=== PATIENT | male | born 1955 | race Caucasian/White ===

== ENCOUNTER → 2023-08-26 | Outpatient (CLI) | payer OTHER ==
--- NOTE | 2023-08-26 18:55 | MR ---
EXAMINATION TYPE: MR knee RT wo con DATE OF EXAM: 08/26/2023 COMPARISON: None HISTORY: 67-year-old male M25.561 Rt knee pain TECHNIQUE: Multiplanar, multisequence imaging of the right knee is performed without IV contrast. FINDINGS: The ACL and PCL are intact. There is edema on either side of the intact MCL. LCL complex is intact. Inner margin radial tear posterior horn of the medial meniscus. Additional oblique tear posterior hor n extending to the junction with the meniscal body. Small partial tear of the semimembranosus inserti on just adjacent. Prominent associated posterior soft tissue swelling. Focal moderate irregular carti wes loss medial weightbearing aspect of the mediofemoral condyle. There is mild diffuse thinning of medial compartment articular cartilage volume. The lateral meniscus is intact and overall lateral compartment articular volume is maintained. There is moderate irregular cartilage fissuring throughout the mid and lateral patellar articular khushbu faces. Trochlear cartilage is maintained. Extensor mechanism is intact. There appears to be adventitial bursal formation anterior to the distal patellar tendon just above th e tibial tuberosity measuring 3.9 cm By 6 mm thick by 2.4 cm craniocaudal. Additional mild anterior soft tissue swelling. There is a small knee joint effusion without Moreno's cyst. IMPRESSION: 1. Grade 1 MCL sprain. 2. Large oblique tear involving the posterior horn of the medial meniscus with superimposed inner mar gin radial tear. 3. Small partial tear of the semimembranosus insertion and adjacent soft tissue swelling. 4. 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 5. Adventitial bursal formation anterior to the distal patellar tendon just above the tibial tuberosi ty measuring 3.9 x 2.4 x 0.6 cm.
== END | disposition home or self-care (01) ==
LOC: RADMRIMAIN 10:22
PROVIDERS: ATTEND Family Medicine
DX: S83.241A Other tear of medial meniscus, current injury, right knee, initial encounter (principal); M17.11 Unilateral primary osteoarthritis, right knee; S83.411A Sprain of medial collateral ligament of right knee, initial encounter

== ENCOUNTER → 2023-10-01 | Outpatient (CLI) | payer OTHER | END | disposition home or self-care (01) | LOC: LABWHC1 11:37 | DX: Z53.9 Procedure and treatment not carried out, unspecified reason (principal) ==

== ENCOUNTER 2023-10-07 10:26 | Day surgery (SDC) | payer OTHER ==
[2023-10-04 15:17] VITALS: BMI 32.3
[2023-10-07] MEDS: IV FLUID CONTINUATION 1,000 ML IV ONE (11:07)
[2023-10-07] MEDS: LACTATED RINGERS 1,000 ML IV SCH (11:41)
[2023-10-07] MEDS: ONDANSETRON 4 MG/2 ML VIAL IVP ONE (11:43)
[2023-10-07] MEDS: DEXAMETHASONE SOD PHOSPHATE 4 MG/ML 1 ML VIAL IV ONE (11:44)
[2023-10-07] MEDS ORDERED: LIDOCAINE 1% INJ 10MG/ML (20 ML MDV) ONE (11:56)
[2023-10-07] MEDS ORDERED: GLYCOPYRROLATE 0.2 MG/ML 2 ML VIAL ONE (11:56)
[2023-10-07] MEDS ORDERED: SUCCINYLCHOLINE CHLORIDE 200 MG/10 ML VIAL IV ONE (11:56)
[2023-10-07] MEDS ORDERED: MIDAZOLAM 2 MG/2 ML VIAL ONE (11:56)
[2023-10-07] MEDS ORDERED: PROPOFOL 10 MG/ML 20 ML VIAL IV ONE (11:56)
[2023-10-07] MEDS ORDERED: fentaNYL (PF) 50 MCG/ML 2 ML AMP ONE (11:56)
[2023-10-07] MEDS: BUPIVACAINE (PF) 0.25% 30 ML VIAL SQ ONE (12:21)
--- NOTE | 2023-10-07 12:48 | P.OP ---
Date of Procedure: 10/07/23 Preoperative Diagnosis: Internal derangement right knee Postoperative Diagnosis: 1. Tear medial and lateral meniscus right knee 2. Grade IV chondromalacia medial femoral condyle right knee 3. Reactive synovitis medial, lateral and suprapatellar compartments right knee Procedure(s) Performed: 1. Arthroscopic partial medial and lateral meniscectomy right knee 2. Arthroscopic microfracture medial femoral condyle right knee 3. Arthroscopic partial synovectomy medial, lateral and suprapatellar compartments right knee Anesthesia: JAMAALA, local Surgeon: Obi Echols Estimated Blood Loss (ml): 6 Pathology: none sent Condition: stable Disposition: PACU Indications for Procedure: 67-year-old patient seen with progressive right knee pain. After having treatment options discussed, he elected to proceed with arthroscopy. Operative Findings: See description of procedure Description of Procedure: Patient was taken to the operative suite. Patient underwent a general anesthetic by the department of anesthesia. Patient was given preoperative antibiotics. The right lower extremity was placed in a well-padded arthroscopic leg peterson. The right leg was prepped and draped in the normal sterile orthopedic fashion. A lateral parapatellar and suprapatellar incision was made. Trochars were inserted. Arthroscopy was initiated. Suprapatellar pouch revealed diffuse thick reactive synovitis. The patellofemoral joint appeared to articulate congruently. There was grade II/III chondromalacia of the patella with no tears. The scope was guided into the medial gutter. No loose bodies or plica were identified. The scope was then guided into the medial compartment. A medial parapatellar incision was made. Trocar inserted followed by probe. Complex tear involving the posterior horn of the medial meniscus. There was an area of grade III/IV chondromalacia medial femoral condyle weightbearing surface with some osteochondral flap tears present. There was thick reactive synovitis anteriorly. I performed a partial medial meniscectomy getting down to stable meniscal tissue. I performed a chondroplasty of the medial femoral condyle getting down to stable osteochondral tissue. I performed a partial synovectomy decompressing the thick reactive synovitis. There was an area of grade IV chondromalacia involving the central medial femoral condyle with an area of exposed bone measuring about a centimeter. I introduced a microfracture awl and I performed a microfracture to that area penetrating the bone with resultant bleeding at the microfracture site. The residual meniscus was probed and was found to be stable. The residual osteochondral surface was stable. There was good decompression of the synovitis. Scope and probe were then guided into the intercondylar notch. Cruciates were identified, probed and found to be stable. The scope and probe were then guided into lateral compartment. There was a radial tear mid bilateral meniscus. There were grade I chondromalacia changes throughout the lateral compartment without tears. There was thick reactive situs anteriorly. I performed a partial lateral meniscectomy getting down to stable meniscal tissue. I performed a partial synovectomy decompressing the reactive synovitis. The residual meniscus was stable. There was good decompression of the synovitis. The scope was in guided back into the suprapatellar compartment. I introduced a motorized shaver into the subtalar compartment. I debrided piecemeal fragments of meniscus I encountered. I performed a partial synovectomy. The shaver was removed. There was good decompression of the synovitis. I took 1 more look around the entire knee, no residual debris. Instruments were now removed from the joint. The joint was infiltrated with .25% Marcaine. Steri-Strips were applied to the portal sites. Sterile dressings were applied. The patient was placed into a SWEETIE hose. No tourniquet was utilized. The patient was awakened, transferred to a bed and taken to recovery stable satisfactory condition.
[2023-10-07 12:55] VITALS: TEMP 97.2
[2023-10-07 13:03] VITALS: RESP 16
[2023-10-07] MEDS: HYDROmorphone 0.5 MG/0.5 ML SYRINGE IVP PRN (13:25)
[2023-10-07] MEDS: traMADol 50 MG TAB PO STA (14:33)
[2023-10-07 14:39] VITALS: BP 135/67; PULSE 71
== END 2023-10-07 15:39 | disposition home or self-care (01) ==
LOC: OR 10:26
PROVIDERS: ATTEND Orthopaedic Surgery
DX: S83.281A Other tear of lateral meniscus, current injury, right knee, initial encounter (principal); M22.41 Chondromalacia patellae, right knee; M65.161 Other infective (teno)synovitis, right knee; X58.XXXA Exposure to other specified factors, initial encounter